=== PATIENT | male | born 2005 | race Caucasian/White ===

== ENCOUNTER 2024-06-13 09:54 | Emergency (ER) | payer MEDICAID ==
[~2024-06-13] VITALS: Ht 182.9 cm; Wt 63.6 kg
[2024-06-13] MEDS: TETanus/Pertussis (Acell)/Diphther VAC/PF (Tdap-Adult) 0.5ml syringe IMVAC ONE (10:36)
[2024-06-13] MEDS: morphine 4 MG/ML inj SYRINge IV ONE ×2 (10:37→12:28)
[2024-06-13] MEDS: diphenhydrAMINE 50 mg/ml inj IV ONE (12:28)
[2024-06-13 15:04] VITALS: BP 120/80; PULSE 76; RESP 14; TEMP 97.8; O2SAT 99
== END 2024-06-13 15:11 | disposition home or self-care (01) ==
LOC: ER 09:54
DX: S82.002A Unspecified fracture of left patella, initial encounter for closed fracture (principal); S72.434A Nondisplaced fracture of medial condyle of right femur, initial encounter for closed fracture; V23.99XA Unspecified rider of other motorcycle injured in collision with car, pick-up truck or van in traffic accident, initial encounter; Y93.89 Activity, other specified; Y92.89 Other specified places as the place of occurrence of the external cause; Y99.8 Other external cause status
CPT/HCPCS: 29505; 73060; 73090; 73564; 73590; 73700; 90471; 90715; 96374; 96375; 96376; 99285; J1200; J2270; A6258; A6449